=== PATIENT | female | born 1945 | race Caucasian/White ===

== ENCOUNTER → 2017-10-03 | Outpatient (CLI) | payer MEDICAID ==
[~2017-10-03] MED LIST: ACETAMINOPHEN325 M1 PO; ACIDOPHILUS1 EAC4 PO; ASPIR 8181 M1 PO; ASPIRIN325 PO; ATIVAN0.5 MG PO; BACLOFEN PO; BACTROBAN15 GM TP; BANOPHEN25 MG PO; CALCIUM 600 +1 EAC1 PO; CARRINGTON MOIS99 G2 TOP; CARVEDILOL12.5 MG PO; CARVEDILOL25 MG PO; CARVEDILOL6.25 MG PO; CIPRO500 MG PO; CIPROFLOXACIN500 M1 PO; CITRATE OF MAG300 ML PO; COLACE100 MG PO; COZAAR 25 MG TA25 M1 PO; DAKIN'S473 M2 TOP; DIFLUCAN100 MG PO; DOXYCYCLINE 10100 MG PO; ENABLEX15 MG PO; FOSAMAX 70 MG T70 M1 PO; FOSAMAX 70 MG T70 MG PO; GABAPENTIN 100100 MG PO; GABAPENTIN100 MG PO; HUMALOG100 UNIT/1 SUBQ; HYDROCHLOROTHIA25 M1 PO; IRON325 PO; KEFLEX500 MG PO; LASIX 40 MG TAB40 M2 PO; LEVAQUIN 500 M500 M1 PO; LEVOTHYROXINE0.05 MG PO; LEVOTHYROXINE50 MCG PO; LEXAPRO 10 MG T10 M1 PO; LEXAPRO 10 MG T10 M2 PO; LEXAPRO 10 MG T10 MG PO; LEXAPRO20 MG PO; LEXAPRO5 MG PO; LIDODERM 5%1 PATC1 TRANSDERM; LIDODERM 5%1 PATCH TOP; LIORESAL 10 MG10 MG PO; LIPITOR 20 MG T20 M1 PO; LIPITOR20 MG PO; LYRICA150 MG PO; MAPAP325 MG PO; MIRALAX17 GM PO; MUCINEX600 MG PO; NASONEB NASAL1 EACH INH; NEPHROCAPS SOFT1 CAP PO; NORCO 5-325 TA1 EACH PO; NORVASC10 MG PO; NYAMYC15 GM TOP; NYSTATIN 1100000 U/M; OXYBUTYNIN 5 MG5 M1 PO; OXYBUTYNIN 5 MG5 M2 PO; OYSTER SHELL C500 MG PO; POTASSIUM CHLO10 MEQ PO; POTASSIUM20 PO; PREVACID30 M1 PO; PROVENTIL; SANTYL OINTMENT30 G1 TOP; SEREVENT DISKU50 MCG IH; SEROQUEL 25 MG25 M1 PO; TENORMIN25 MG PO; THEREMS1 EAC1 PO; TOVIAZ8 MG PO; TYLENOL325 MG PO; UNICOMPLEX M TA1 TA1 PO; VANCOMYCIN1.25 GM/21 IV; VITAMIN C500 M1 PO; VITAMIN D1000 UNI1 PO; VITAMINC500 PO; ZOFRAN ODT4 MG DISSOLVE; ZOSYN 3/0.373.375 G3 IV; ZOSYN 3/0.373.375 G3 IVPB; ZOVIRAX 20200 MG/51; ZOVIRAX 5% CR2 G1 TP
== END ==
LOC: M.WC 09:00
DX: L89.324 Pressure ulcer of left buttock, stage 4 (principal); L89.314 Pressure ulcer of right buttock, stage 4; G82.21 Paraplegia, complete; G35 Multiple sclerosis; I10 Essential (primary) hypertension; D64.9 Anemia, unspecified; F33.1 Major depressive disorder, recurrent, moderate; E03.8 Other specified hypothyroidism; Z68.28 Body mass index [BMI] 28.0-28.9, adult; Z87.891 Personal history of nicotine dependence

== ENCOUNTER → 2017-10-17 | Outpatient (CLI) | payer MEDICAID ==
--- NOTE | 2017-10-20 08:08 | CON ---
[address] [address] CONSULTATION Name: ELLE SUAREZ [id number] Admission: 10/17/17 Attend Phys: Enrico Duarte, Discharge: Date of : 43 Report #: [id number] THIS REPORT FOR: //name// CC: Micah Duarte DATE OF SERVICE: 10/17/2017 INFECTIOUS DISEASE CONSULTATION REFERRING PHYSICIAN: Dr. Enrico Duarte. REASON FOR EVALUATION: Bilateral ischial decubitus ulcers, stage 4, on the right, complicated by infection. HISTORY OF PRESENT ILLNESS: Chart reviewed, the patient examined. This is a 72-year-old whom I have seen in the past, in 2016, with long-standing issues of multiple sclerosis complicated by paraplegia. She is very limited and is unable to ambulate. She has had long-standing wounds dating back months, perhaps years. In spite of ongoing wound care, including, various modalities and wound VAC, it has not healed. She is responsive, although it is clear that she has a lot of insight. Denies any recent fevers or chills; component engineer confirms that. Apparently, her appetite has been fair. She does have a iicg-ll-oixtsinz pain, worse with direct pressure. She spends most of her time in bed, although she does get up in a wheelchair. She was seen roughly 2 weeks ago. At that point, culture was collected and had polymicrobial growth including group A strep. Gram negatives including Providencia Proteus and Klebsiella with varying susceptibilities, Providencia being most resistant. She was started on levofloxacin. ALLERGIES: SULFA, CODEINE AND LATEX. CURRENT MEDICATIONS: Include carvedilol 12.5 p.o. b.i.d., aspirin 325 daily, p.r.n. acetaminophen, lorazepam 0.5 mg tab every 4-6 hours as needed, gabapentin 100 mg daily at bedtime, ondansetron, Banophen 25 mg, atorvastatin 20 mg daily, quetiapine 12.5 mg 3 times a day, ipratropium and albuterol inhaler, Humalog subQ, Lasix, multivitamin, Levaquin 750 daily, escitalopram, levothyroxine and Ditropan XL. PAST MEDICAL HISTORY: History of hypertension and seizures. SOCIAL HISTORY: Former smoker. No ethanol. FAMILY HISTORY: Noncontributory. REVIEW OF SYSTEMS: Somewhat limited. Denies [place] [address] CONSULTATION Name: ELLE SUAREZ Room: [facility]#: [id number] Admission: 10/17/17 Attend Phys: Enrico Duarte, Discharge: Date of : 43 Report #: [id number] gastrointestinal-related complaints. PHYSICAL EXAMINATION: GENERAL She is clearly chronically ill, undernourished. She is lying in the right lateral decubitus position. SKIN: She has got a stage 4 decubitus ulcer involving the right ischial site, a smaller one on the left ischium. There is some moderate degree of inflammation noted. There is no particular odor. There is some devitalized tissue within the base. On palpation, I only feel the bony prominence; however, I do not think there is exposed bone at this point. GENITOURINARY: Deferred. RECTAL: Deferred. LABORATORY DATA: Cultures as described above, group A strep Klebsiella pneumoniae and she is resistant to ampicillin, sulbactam, trimethoprim, sulfa and tetracycline; intermediate to Augmentin. Proteus mirabilis, which is intermediate to aztreonam, cefazolin and resistant to Cipro, Levaquin, Bactrim and tetracycline. Providencia stuartii is susceptible only to amikacin, aztreonam, ceftriaxone, Zosyn and Bactrim and intermediate to levofloxacin. ASSESSMENT AND PLAN: Decubitus ulcer, bilateral ischial sites. We will continue the Levaquin. I think she apparently is tolerating it. It is not that clear that she is overtly toxic at this point, risk for becoming quite sick. Noted plans. Refer to Plastic Surgery for more definitive treatment. At that point, I would likely put in a PICC line and give her parenteral antimicrobial. She is encouraged to optimize her nutritional status. I will see her in 2 weeks. <ELECTRONICALLY SIGNED> By: Walter Sanchez MD 10/20/17 0808 [id number] Sanchez MD /nt
== END ==
LOC: M.WC 01:37
DX: L89.314 Pressure ulcer of right buttock, stage 4 (principal); L89.324 Pressure ulcer of left buttock, stage 4; I10 Essential (primary) hypertension; E03.8 Other specified hypothyroidism; D64.9 Anemia, unspecified; G82.21 Paraplegia, complete; G35 Multiple sclerosis; F33.1 Major depressive disorder, recurrent, moderate; Z87.891 Personal history of nicotine dependence

== ENCOUNTER → 2017-10-31 | Outpatient (CLI) | payer MEDICAID ==
--- NOTE | 2017-11-01 09:24 | CON ---
[address] [address] CONSULTATION Name: ELLE SUAREZ Room: [facility]#: [id number] Admission: 10/31/17 Attend Phys: Enrico Duarte, Discharge: Date of : 43 Report #: [id number] THIS REPORT FOR: //name// CC: Micah Duarte DATE OF SERVICE: 10/31/2017 TYPE OF REPORT: Infectious disease consultation. ATTENDING PHYSICIAN: Enrico Duarte D.O. REASON FOR EVALUATION: Deep sacral decubitus ulcer complicated by polymicrobial infection. She has been on essentially chronic suppressive therapy with levofloxacin. Generally, she denies significant amount of pain associated with the site. States her appetite has been fair, eating generally pretty well. She does not aware of any fevers. On examination, the wound appears somewhat similar. There is some maceration at the margins per nps, had been up in the wheelchair for prolonged period. It may be related to pressure as well as probably drainage from the wound site macerating the intact skin. On probing, it does not appear to be an exposed bone at this point. Chronic sacral decubitus ulcer. We will continue therapy with Levaquin based on previous susceptibilities, so it does not cover all the isolates. We will have to monitor expectantly. There are efforts made to refer her for Plastic Surgery at [place] and we are still waiting on their response. In the interim, perhaps if she gets accepted in the clinic, we will reculture, which may improve likelihood of intervening there is no overt infection at that point. We will see her in 2 weeks. <ELECTRONICALLY SIGNED> By: Walter Sanchez MD 11/01/17 0924 1145 [id number] Sanchez MD /nt
== END ==
LOC: M.WC 01:41
DX: L89.324 Pressure ulcer of left buttock, stage 4 (principal); L89.314 Pressure ulcer of right buttock, stage 4; G82.21 Paraplegia, complete; G35 Multiple sclerosis; I10 Essential (primary) hypertension; D64.9 Anemia, unspecified; F33.1 Major depressive disorder, recurrent, moderate; E03.8 Other specified hypothyroidism; Z68.28 Body mass index [BMI] 28.0-28.9, adult; Z87.891 Personal history of nicotine dependence

== ENCOUNTER → 2017-11-21 | Outpatient (CLI) | payer MEDICAID | LOC: M.WC 01:52 | DX: S81.811A Laceration without foreign body, right lower leg, initial encounter (principal); L89.314 Pressure ulcer of right buttock, stage 4; L89.324 Pressure ulcer of left buttock, stage 4; G82.21 Paraplegia, complete; G35 Multiple sclerosis; I10 Essential (primary) hypertension; D64.9 Anemia, unspecified; F33.1 Major depressive disorder, recurrent, moderate; E03.8 Other specified hypothyroidism; Z68.28 Body mass index [BMI] 28.0-28.9, adult; Z87.891 Personal history of nicotine dependence; X58.XXXA Exposure to other specified factors, initial encounter; Y93.89 Activity, other specified; Y92.89 Other specified places as the place of occurrence of the external cause; Y99.8 Other external cause status ==

== ENCOUNTER → 2017-12-19 | Outpatient (CLI) | payer MEDICAID ==
--- NOTE | 2017-12-19 13:36 | CON ---
[address] [address] CONSULTATION Name: DANIELAELLE Marsh Room: [facility]#: [id number] Admission: 12/19/17 Attend Phys: Enrico Duarte, Discharge: Date of : 43 Report #: [id number] THIS REPORT FOR: //name// CC: Micah Duarte DATE OF SERVICE: 12/19/2017 INFECTIOUS DISEASE CONSULTATION ATTENDING PHYSICIAN: Dr. Enrico Duarte. HISTORY OF PRESENT ILLNESS: She is seen in the [facility]. Follow up buttocks ulcer which is, at this point, clinically stable. She was scheduled to undergo evaluation and possible primary closure of the site; however, clinic was canceled. She has been on antibiotics, which have been discontinued at some point, presumably in the last several weeks. Post-debridement by Dr. Duarte, the wound appears to be generally clean. On questioning, she denies any fevers or chills. No systemic illness. Appetite has been good. ASSESSMENT AND PLAN: Chronic decubitus ulcer, perineal area. We will continue off the antibiotics, wound care as prescribed by Dr. Duarte, offloading the site roughly and repeat evaluation for possible closure. <ELECTRONICALLY SIGNED> By: Walter Sanchez MD 12/19/17 1336 [id number] Sanchez MD /robel
== END ==
LOC: M.WC 02:18
DX: L89.324 Pressure ulcer of left buttock, stage 4 (principal); L89.314 Pressure ulcer of right buttock, stage 4; S81.811D Laceration without foreign body, right lower leg, subsequent encounter; I10 Essential (primary) hypertension; E03.8 Other specified hypothyroidism; D64.9 Anemia, unspecified; G82.21 Paraplegia, complete; G35 Multiple sclerosis; F33.1 Major depressive disorder, recurrent, moderate; Z68.28 Body mass index [BMI] 28.0-28.9, adult; Z87.891 Personal history of nicotine dependence; X58.XXXD Exposure to other specified factors, subsequent encounter

== ENCOUNTER → 2018-01-16 | Outpatient (CLI) | payer MEDICAID ==
--- NOTE | 2018-01-17 09:36 | CON ---
[address] [address] CONSULTATION Name: ELLE SUAREZ [id number] Admission: 01/16/18 Attend Phys: Enrico Duarte, Discharge: Date of : 43 Report #: [id number] THIS REPORT FOR: //name// CC: Micah Duarte DATE OF SERVICE: 01/16/2018 She is seen in [facility]. ATTENDING PHYSICIAN: Dr. Enrico Duarte. HISTORY OF PRESENT ILLNESS: The patient is here today with bilateral ischial wound. These have been chronic, ongoing. She has been on and off antibiotics at this point. Currently, is off antimicrobial therapy. She does have some degree of pain at this point. She has actually had pain medicine and is quite lethargic, it is difficult to ascertain. Caregiver notes that she is not aware of any fevers. She states her appetite has been good. She does have ongoing issues with leaking through the urethra. She does have bilateral nephrostomy tubes in place, also fairly consistent stooling as well. On examination, the wounds appear generally clean. The one on the left is larger, the one on the right smaller; however, it apparently probes to bone she has been able to move forward with plastic surgery due to the issues of possible contamination via urine and stool. I did discuss with Dr. Duarte. She may benefit from some sort of catheter, either Dueñas or suprapubic as well as consideration of a diverting colostomy. At this point, I do not think there is any overt infection, would probably hold off on antibiotics, in the meantime some changes certainly could restart. We will see her back at intervals, I believe on a monthly basis. <ELECTRONICALLY SIGNED> By: Walter Sanchez MD 01/17/18 0936 1059 [id number] Sanchez MD /nt
== END ==
LOC: M.WC 04:37
DX: L89.324 Pressure ulcer of left buttock, stage 4 (principal); L89.314 Pressure ulcer of right buttock, stage 4; G82.21 Paraplegia, complete; G35 Multiple sclerosis; I10 Essential (primary) hypertension; D64.9 Anemia, unspecified; F33.1 Major depressive disorder, recurrent, moderate; E03.8 Other specified hypothyroidism; Z87.891 Personal history of nicotine dependence

== ENCOUNTER 2018-02-10 16:15 | Observation (INO) | payer MEDICAID ==
[~2018-02-10] VITALS: Ht 165.1 cm; Wt 84.4 kg
[~2018-02-10 16:15] MED LIST changes: -ACIDOPHILUS1 EAC4 PO; -ATIVAN0.5 MG PO; -BANOPHEN25 MG PO; -CARRINGTON MOIS99 G2 TOP; -CARVEDILOL12.5 MG PO; -DAKIN'S473 M2 TOP; -IRON325 PO; -MAPAP325 MG PO; -NASONEB NASAL1 EACH INH; -NORCO 5-325 TA1 EACH PO; -NYAMYC15 GM TOP; -OXYBUTYNIN 5 MG5 M2 PO; -SANTYL OINTMENT30 G1 TOP; -SEROQUEL 25 MG25 M1 PO; -THEREMS1 EAC1 PO; -VITAMINC500 PO; -ZOFRAN ODT4 MG DISSOLVE
[2018-02-10 16:20] VITALS: BP 142/64
[2018-02-10] MEDS ORDERED: ACIDOPHILUS1 EAC4 PO (16:20)
[2018-02-10] MEDS ORDERED: CARRINGTON MOIS99 G2 TOP (16:22)
[2018-02-10] MEDS ORDERED: CARVEDILOL12.5 MG PO (16:22)
[2018-02-10] MEDS ORDERED: DAKIN'S473 M2 TOP (16:23)
[2018-02-10] MEDS ORDERED: IRON325 PO (16:24)
[2018-02-10] MEDS ORDERED: OYSTER SHELL C500 MG PO (16:26)
[2018-02-10] MEDS ORDERED: OXYBUTYNIN 5 MG5 M2 PO (16:26)
[2018-02-10] MEDS ORDERED: MIRALAX17 GM PO (16:27)
[2018-02-10] MEDS ORDERED: SEROQUEL 25 MG25 M1 PO (16:28)
[2018-02-10] MEDS ORDERED: SANTYL OINTMENT30 G1 TOP (16:29)
[2018-02-10] MEDS ORDERED: THEREMS1 EAC1 PO (16:29)
[2018-02-10] MEDS ORDERED: BANOPHEN25 MG PO (16:30)
[2018-02-10] MEDS ORDERED: VITAMINC500 PO (16:30)
[2018-02-10] MEDS ORDERED: NORCO 5-325 TA1 EACH PO (16:31)
[2018-02-10] MEDS ORDERED: NASONEB NASAL1 EACH INH (16:33)
[2018-02-10] MEDS ORDERED: ATIVAN0.5 MG PO (16:35)
[2018-02-10 16:36] LABS: ABSOLUTE BASOPHILS 0.1 thou/uL (0.0-0.2); ABSOLUTE EOSINOPHILS 0.4 thou/uL (0.0-0.7); ABSOLUTE LYMPHOCYTES 2.1 thou/uL (0.8-5.3); ABSOLUTE MONOCYTES 0.5 thou/uL (0.0-1.2); ABSOLUTE NEUTROPHILS 2.7 thou/uL (1.6-8.1); BASOPHILS 2.5 %; EOSINOPHILS 6.9 %; HEMATOCRIT 29.8 % (37.0-47.0); HEMOGLOBIN 9.5 gm/dL (12.0-15.0); LYMPHOCYTES 35.6 %; MCH 25.1 pg (26.0-34.0); MCHC 31.7 g/dL (28.0-37.0); MCV 79.3 fL (80.0-100.0); MONOCYTES 8.6 %; MPV 8.9 fl. (7.2-11.1); NUCLEATED RBCS 0 /100WBC; PLATELET COUNT* 241 thou/uL (150-400); POLYS 46.4 %; RBC 3.76 mil/uL (4.20-5.00); RDW-CV 19.1 % (10.5-14.5); WBC 5.8 thou/uL (4.0-11.0)
[2018-02-10] MEDS ORDERED: MAPAP325 MG PO (16:36)
[2018-02-10] MEDS ORDERED: NYAMYC15 GM TOP (16:37)
[2018-02-10] MEDS ORDERED: ZOFRAN ODT4 MG DISSOLVE (16:37)
[2018-02-10 16:40] LABS: APTT 30.8 Seconds (25.0-31.3); INR 1.1; PROTIME 10.5 Seconds (9.20-11.50)
[2018-02-10 16:41] LABS: ANION GAP 4 mmol/L (7-16); BUN 19 mg/dL (7-18); CALCIUM 8.6 mg/dL (8.5-10.1); CHLORIDE 104 mmol/L (98-107); CO2 32 mmol/L (21-32); CREATININE 0.6 mg/dL (0.6-1.3); GLUCOSE 98 mg/dL (70-99); POTASSIUM 3.7 mmol/L (3.5-5.1); SODIUM 140 mmol/L (136-145)
[2018-02-10 16:47] LABS: URINE BILIRUBIN NEGATIVE (Negative); URINE BLOOD 3+ (Negative); URINE CLARITY CLOUDY; URINE COLOR YELLOW; URINE GLUCOSE-RANDOM NEGATIVE (Negative); URINE KETONES NEGATIVE (Negative); URINE PROTEIN 1+ (Negative); URINE UROBILINOGEN 0.2 E.U./dl (0.2-1.0)
[2018-02-10 16:57] LABS: ALBUMIN 2.4 g/dL (3.4-5.0); ALKALINE PHOSPHATASE 160 U/L (46-116); NT-PRO BRAIN NAT PEPTIDE 336 pg/mL (<300); SGOT 25 U/L (15-37); SGPT 18 U/L (30-65); TOTAL BILIRUBIN 0.1 mg/dL (<0.1-1.0); TOTAL PROTEIN 7.7 g/dL (6.4-8.2); TROPONIN-I LEVEL <0.06 ng/mL (<0.06)
[2018-02-10 17:00] LABS: URINE LEUKOCYTES-REFLEX 2+ (Negative); URINE NITRITE-REFLEX POSITIVE (Negative)
[2018-02-10 17:06] LABS: CASTS None Seen /LPF (None Seen); SQUAMOUS 4-10 Moderate /LPF (0-3); URINE RBC >20 Many /HPF (0-2); URINE WBC-REFLEX 6-15 Few /HPF (0-5)
[2018-02-10 17:07] LABS: TRIPLE PHOSPHATE CRYSTALS 0-3 Few /LPF (None Seen)
[2018-02-10 18:25] VITALS: BP 166/61
[2018-02-10 18:30] VITALS: BP 158/68
[2018-02-10 21:10] VITALS: BP 133/53
[2018-02-11 04:50] LABS: ABSOLUTE BASOPHILS 0.1 thou/uL (0.0-0.2); ABSOLUTE EOSINOPHILS 0.4 thou/uL (0.0-0.7); ABSOLUTE MONOCYTES 0.6 thou/uL (0.0-1.2); ABSOLUTE NEUTROPHILS 3.1 thou/uL (1.6-8.1); BASOPHILS 1.2 %; EOSINOPHILS 5.8 %; MCV 79.3 fL (80.0-100.0); MPV 9.4 fl. (7.2-11.1); RDW-CV 19.1 % (10.5-14.5); WBC 6.1 thou/uL (4.0-11.0)
[2018-02-11 04:52] LABS: HEMATOCRIT 28.8 % (37.0-47.0); HEMOGLOBIN 9.3 gm/dL (12.0-15.0); LYMPHOCYTES 32.1 %; MCH 25.5 pg (26.0-34.0); MCHC 32.2 g/dL (28.0-37.0); MONOCYTES 9.4 %; NUCLEATED RBCS 0 /100WBC; PLATELET COUNT* 220 thou/uL (150-400); POLYS 51.5 %; RBC 3.64 mil/uL (4.20-5.00)
[2018-02-11 05:08] LABS: CALCIUM 8.8 mg/dL (8.5-10.1); CREATININE 0.5 mg/dL (0.6-1.3); POTASSIUM 4.1 mmol/L (3.5-5.1)
[2018-02-11 08:00] VITALS: BP 126/59; BP 128/62
[2018-02-11 16:43] VITALS: BP 128/62
--- NOTE | 2018-02-11 17:29 | EKG ---
[place] [address] ELECTROCARDIOGRAM REPORT Name: ELLE SUAREZ Ellie Room: [address]R.#: [id number] Admission: 02/10/18 Attend Phys: Zander Muñoz MD Discharge: Date of : 43 Report #: [id number] THIS REPORT FOR: //name// [facility] ED Test Date: 2018-02-10 Test Time: 16:27:29 Pat Name: ELLE SUAREZ Department: Room: [facility] Gender: F Machine Programmer: : 1945 Requested By: Nicolas Lanier Order Number: [id number] MD: Chris Gates Measurements Intervals [place] Rate: 65 P: 49 [place]: 183 QRS: -1 QRSD: 108 T: 26 QT: 435 QTc: 453 Interpretive Statements Sinus rhythm Borderline T abnormalities, anterior leads Compared to ECG 02/28/2017 07:15:53 T-wave abnormality now present Prolonged QT interval no longer present Electronically Signed On 02-11-2018 17:29:02 CDT by Chris Gates [email or web address] <ELECTRONICALLY SIGNED> By: Chris Gates MD, FACC 02/11/18 1729 1627 1627 Chris Gates MD, [facility] /EPI
== END 2018-02-11 18:48 ==
LOC: M.ERS 16:15 → M.TBA-ER 17:55 → M.3W 17:55
PROVIDERS: Family Medicine; ADMIT Internal Medicine
DX: T83.128A Displacement of other urinary devices and implants, initial encounter (principal); N39.0 Urinary tract infection, site not specified; G35 Multiple sclerosis; G82.20 Paraplegia, unspecified; R53.81 Other malaise; F41.9 Anxiety disorder, unspecified; I10 Essential (primary) hypertension; F32.9 Major depressive disorder, single episode, unspecified; E11.40 Type 2 diabetes mellitus with diabetic neuropathy, unspecified; E03.9 Hypothyroidism, unspecified; E78.5 Hyperlipidemia, unspecified; E44.0 Moderate protein-calorie malnutrition; L89.90 Pressure ulcer of unspecified site, unspecified stage; Z79.82 Long term (current) use of aspirin; Z79.4 Long term (current) use of insulin

== ENCOUNTER → 2018-02-27 | Outpatient (CLI) | payer MEDICAID ==
[~2018-02-27] MED LIST changes: +ACIDOPHILUS1 EAC4 PO; +ATIVAN0.5 MG PO; +BANOPHEN25 MG PO; +CARRINGTON MOIS99 G2 TOP; +CARVEDILOL12.5 MG PO; +DAKIN'S473 M2 TOP; +IRON325 PO; +MAPAP325 MG PO; +NASONEB NASAL1 EACH INH; +NORCO 5-325 TA1 EACH PO; +NYAMYC15 GM TOP; +OXYBUTYNIN 5 MG5 M2 PO; +SANTYL OINTMENT30 G1 TOP; +SEROQUEL 25 MG25 M1 PO; +THEREMS1 EAC1 PO; +VITAMINC500 PO; +ZOFRAN ODT4 MG DISSOLVE
--- NOTE | 2018-03-02 07:36 | CON ---
[address] [address] CONSULTATION Name: ELLE SUAREZ [id number] Admission: 02/27/18 Attend Phys: Enrico Duarte, Discharge: Date of : 43 Report #: [id number] THIS REPORT FOR: //name// CC: Micah Duarte DATE OF SERVICE: 02/27/2018 LOCATION: Seen in [facility]. ATTENDING PHYSICIAN: Dr. Enrico Duarte. The patient returns to followup of ongoing longstanding issues with decubitus ulcers involving her sacrum ischial site. She denies any particular new complaints. I think she generally has pain primarily with a position that leaves her directly exerting pressure on the site. It is unclear if she has had any fevers. It is notable she has been off antibiotics for several weeks at this point. She does continue to have issues with leakage around the nephrostomy tubes which soils the wounds. She has ongoing treatment with Dakin solution, several attempts have been unsuccessful moving forward and correction of these ongoing issues. Chronic sacral and ischial decubitus ulcers; at this point, it is difficult to ascertain whether this is true chronic osteomyelitis. Seemingly, she is doing reasonably well off antibiotics. We will continue this course with some changes. Ultimately, I do not think the wound is going to heal; thus we can take steps to avoid frequent soiling, continue to try to optimize her nutritional status and offloading, may be consideration for palliative care.03/01/2018 <ELECTRONICALLY SIGNED> By: Walter Sanchez MD 03/02/18 0736 1151 1823Josenely Sanchez MD /nt
== END ==
LOC: M.WC 02-13 09:00
DX: L89.324 Pressure ulcer of left buttock, stage 4 (principal); L89.314 Pressure ulcer of right buttock, stage 4; D64.9 Anemia, unspecified; E03.8 Other specified hypothyroidism; G82.21 Paraplegia, complete; G35 Multiple sclerosis; I10 Essential (primary) hypertension; F33.1 Major depressive disorder, recurrent, moderate; Z68.28 Body mass index [BMI] 28.0-28.9, adult; Z87.891 Personal history of nicotine dependence